=== PATIENT | female | born 1945 | race Caucasian/White ===

== ENCOUNTER 2024-08-14 03:21 | Emergency (ER) | payer MEDICARE, OTHER ==
[2024-08-14 04:01] LABS: Basophils # (A) 0.1 k/uL (0-0.2); Basophils % (A) 0 %; Eosinophils # (A) 0.1 k/uL (0-0.7); Eosinophils % (A) 1 %; HCT 25.4 % (34.0-46.0); HGB 7.7 gm/dL (11.4-16.0); Hypochromasia Marked; Lymphocytes # (A) 1.6 k/uL (1.0-4.8); Lymphocytes % (A) 8 %; MCH 26.2 pg (25.0-35.0); MCHC 30.3 g/dL (31.0-37.0); MCV 86.4 fL (80.0-100.0); Mean Platelet Volume 12.7; Monocytes # (A) 0.5 k/uL (0-1.0); Monocytes % (A) 2 %; Neutrophils # (A) 17.3 k/uL (1.3-7.7); Neutrophils % (A) 88 %; Platelet Count 230 k/uL (150-450); RBC 2.94 m/uL (3.80-5.40); RDW 15.7 % (11.5-15.5); WBC 19.6 k/uL (3.8-10.6)
[2024-08-14] MEDS: SODIUM CHLORIDE 0.9% 1,000 ML IV STA (04:03)
[2024-08-14] MEDS: PANTOPRAZOLE 40 MG/10 ML VIAL IVP STA (04:05)
[2024-08-14 04:17] LABS: ALT 19 U/L (4-34); AST 52 U/L (14-36); African American GFR (CKD) 42 (>60 ml/min/1.73 sqM); Albumin 3.8 g/dL (3.5-5.0); Alkaline Phosphatase 105 U/L (38-126); Anion Gap 11 mmol/L; Blood Urea Nitrogen 60 mg/dL (7-17); Calcium 8.9 mg/dL (8.4-10.2); Carbon Dioxide 15 mmol/L (22-30); Chloride 113 mmol/L (98-107); Glucose 387 mg/dL (74-99); Lipase 307 U/L (23-300); Magnesium 2.2 mg/dL (1.6-2.3); Non-African American GFR(CKD) 36 (>60 ml/min/1.73 sqM); Potassium 5.7 mmol/L (3.5-5.1); Sodium 139 mmol/L (137-145); Total Bilirubin 0.5 mg/dL (0.2-1.3); Total Protein 6.7 g/dL (6.3-8.2)
--- NOTE | 2024-08-14 04:27 | ED ---
General Adult HPI - General Chief complaint: GI Bleed Stated complaint: GI/Blood in Stool Time Seen by Provider: 08/14/24 03:38 Source: patient, EMS Mode of arrival: EMS Limitations: no limitations - History of Present Illness Initial comments: Patient 79-year-old female with a past medical history of dementia x 1-2 at baseline, presenting today for coffee-ground emesis and black stools. History is limited by patient's dementia. History mainly comes from EMS report. Patient comes from [facility], they state that at 130 this morning patient began having of the episodes of coffee-ground emesis and black tarry stools. The patient is not sure how many times she vomited, currently endorses back pain. On blood thinners. Does take a baby aspirin daily. - Related Data Home Medications Medication Instructions Recorded Confirmed Acetaminophen [Tylenol] 650 mg PO TID@0500,1300,2100 06/18/16 06/18/16 Albuterol Nebulized [Ventolin 2.5 mg INHALATION Q6H PRN 06/18/16 06/18/16 Nebulized] Artificial Tears-Hypromellose 2 drops BOTH EYES BID 06/18/16 06/18/16 [Artificial Tear Drops] Aspirin EC [Ecotrin Low Dose] 81 mg PO HS 06/18/16 06/18/16 Baclofen 10 mg PO BID 06/18/16 06/18/16 Dermaphor 1 applic TOPICAL TID PRN 06/18/16 06/18/16 Furosemide [Lasix] 20 mg PO DAILY 06/18/16 06/18/16 Ketoconazole 2% Cream [Nizoral 2%] 1 applic TOPICAL HS 06/18/16 06/18/16 Ketoconazole 2% Shampoo [Nizoral] 1 applic TOPICAL FR 06/18/16 06/18/16 Lidocaine 5% Oint [Xylocaine 5% 1 applic TOPICAL TID 06/18/16 06/18/16 Oint] Mylanta 30 ml PO Q4H PRN MDD 90 ML 06/18/16 06/18/16 Nystatin [Nystop] 1 applic TOPICAL BID PRN 06/18/16 06/18/16 Pravastatin Sodium [Pravachol] 40 mg PO HS 06/18/16 06/18/16 bisacodyL [Dulcolax] 10 mg RECTAL DAILY PRN 06/18/16 06/18/16 metFORMIN HCL [Glucophage] 500 mg PO BID 06/18/16 06/18/16 raNITIdine HCL [Zantac] 75 mg PO HS 06/18/16 06/18/16 Allergies Allergy/AdvReac Type Severity Reaction Status Date / Time No Known Allergies Allergy Verified 06/18/16 11:38 Review of Systems ROS Statement: Those systems with pertinent positive or pertinent negative responses have been documented in the HPI. ROS Other: All systems not noted in ROS Statement are negative. 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 History of Any Multi-Drug Resistant Organisms: ESBL Date of last positivie culture/infection: 06/18/16 MDRO Source:: ESBL URINE E.COLI Past Surgical History: Section, Cholecystectomy, Hysterectomy Past Anesthesia/Blood Transfusion Reactions: No Reported Reaction Additional Past Anesthesia/Blood Transfusion Reaction / Comment(s): blood transfuison 1965 Past Psychological History: No Psychological Hx Reported Smoking Status: Former smoker Past Alcohol Use History: None Reported Past Drug Use History: None Reported - Past Family History Father Family Medical History: Cancer Additional Family Medical History / Comment(s): colon cancer and heart disease Mother Family Medical History: CVA/TIA, Myocardial Infarction (GA) General Exam - General Exam Comments Initial Comments: PE: CONSTITUTIONAL: No apparent distress, ill-appearing, nontoxic, generalized pallor SKIN: Cool, pale, dry, no jaundice, hives or petechiae EYES: Pupils are equally round, extraocular movements intact without nystagmus, pale conjunctiva, non-icteric sclera HENT: Normocephalic, atraumatic, dry mucus membranes, oropharynx with some dry brownish discoloration over tongue, otherwise clear without exudates NECK: , Full range of motion, normal appearance PULMONARY: Rhonchi in the bilateral lung pabon, no crackles or wheezes, normal excursion, no accessory muscle use and no stridor CARDIOVASCULAR: Regular rate, rhythm, normal S1 and S2. No appreciated murmurs, rubs or gallops. 2+ radial pulses bilaterally with intact distal perfusion. No lower extremity edema GASTROINTESTINAL: Soft, decreased but active bowel sounds throughout, diffusely tender, nondistended, palpable umbilical hernia reducible, no rebound or guarding no hepatosplenomegaly, performed with ANITHA Gonsalves at bedside, showed dark tarry stool no active bleeding MUSCULOSKELETAL: Left shoulder tender palpation without gross deformity edema redness or swelling, known injury to the shoulder per facility's extremities have no gross deformity, no edema, redness, or swelling. No calf swelling NEUROLOGIC:_a/o x 2, GCS 15, normal mentation and speech. Moves all extremities x 4 without motor or sensory deficit PSYCHIATRIC:_normal mood and affect, thought process is clear and linear Limitations: no limitations Course Vital Signs 08/14/24 08/14/24 08/14/24 03:27 05:02 05:05 Temperature 97.9 F 97.3 F L 97.8 F Pulse Rate 101 H 102 H 91 Respiratory 16 36 H 32 H Rate Blood Pressure 107/88 107/55 91/48 O2 Sat by Pulse 96 94 L 96 Oximetry 08/14/24 08/14/24 08/14/24 05:12 05:55 06:03 Temperature Pulse Rate 93 87 77 Respiratory 36 H 32 H 20 Rate Blood Pressure 52/22 91/76 O2 Sat by Pulse 96 Oximetry EKG Findings - EKG Comments: EKG Findings:: Sinus tachycardia, rate 102 beats minute, AL interval 196 ms, QRS duration 100 ms, QT/QTc 341/400 ms, left axis deviation, artifact present throughout, no clear ST elevations or depressions however this is limited by artifact Medical Decision Making - Medical Decision Making Was pt. sent in by a medical professional or institution (, PA, REFRACTORY FURNACE DESIGNER, urgent care, hospital, or jail...) When possible be specific @ -Yes, from [facility] Did you speak to anyone other than the patient for history (EMS, parent, family, police, friend...)? What history was obtained from this source @ -No Did you review nursing and triage notes (agree or disagree)? Why? @ -I reviewed and agree with nursing and triage notes Were old charts reviewed (outside hosp., previous admission, EMS record, old EKG, old radiological studies, urgent care reports/EKG's, jail records)? Report findings @Medical records reviewed Differential Diagnosis (chest pain, altered mental status, abdominal pain women, abdominal pain men, vaginal bleeding, weakness, fever, dyspnea, syncope, headac he, dizziness, GI bleed, back pain, seizure, CVA, palpatations, mental health, musculoskeletal)? @Differential GI Bleed: Esophageal varices, aortoenteric fistula, Ani-Blake, gastritis, peptic ulcer disease, diverticulosis, inflammatory bowel disease, hemorrhoids, fissure, colitis, malignancy, Meckel's diverticulum, this is not meant to be an all- inclusive list. EKG interpreted by me (3pts min.). @ -As above X-rays interpreted by me (1pt min.). @ Diffuse pulmonary edema, cardiomegaly, no gross consolidations CT interpreted by me (1pt min.). @ -None done U/S interpreted by me (1pt. min.). @ -None done What testing was considered but not performed or refused? (CT, X-rays, U/S, labs)? Why? @ -see below What meds were considered but not given or refused? Why? @ -None Did you discuss the management of the patient with other professionals (professionals i.e. , PA, REFRACTORY FURNACE DESIGNER, lab, RT, psych nurse, social secretary, vertica architect, teacher, hotel security officer, case work aide)? Give summary @ Case discussed with Dr. Natacha Galindo GI, requests to ensure blood transfusing if able, prior to transfer, accepts for transfer Was smoking cessation discussed for >3mins.? @ -No Was critical care preformed (if so, how long)? @35 minutes Were there social determinants of health that impacted care today? How? (Homele ssness, low income, unemployed, alcoholism, drug addiction, transportation, low edu. Level, literacy, decrease access to med. care, correction, rehab)? @ -No Was there de-escalation of care discussed even if they declined (Discuss DNR or withdrawal of care, Hospice)? @ -Yes, it is noted on patient's paperwork from her facility that she is DNR however did discuss comfort care measures with guardian What co-morbidities impacted this encounter? (DM, HTN, Smoking, COPD, CAD, Cancer, CVA, ARF, Chemo, Hep., AIDS, mental health diagnosis, sleep apnea, morbid obesity)? @Diabetes, dementia Was patient admitted / discharged? Hospital course, mention meds given and route, prescriptions, significant lab abnormalities, going to OR and other pertinent info. @ -Hospital course- [place] [facility] [place] is a pleasant 79-year-old female with a past medical history of diabetes, dementia AO x 1 to 2 at baseline, currently at baseline presenting from [facility] for coffee-ground emesis and black tarry stool since 130 this morning. Patient is unable to tell me how many tmes she has vomited. Currently endorses back pain, otherwise denies complaints though does endorse abdominal pain with palpation of the abdomen diffusely. She is not on blood thinners, does take a baby aspirin daily. Patient is mildly tachycardic on arrival, blood pressure stable, physical exam significant for conjunctival pallor, patient diffusely pale, abdomen mildly distended, diffusely painful, hypoactive bowel sounds throughout, she does have an umbilical hernia that is soft and reducible, multiple surgical scars on the abdomen. Patient complains of left shoulder pain, facility states that patient's left shoulder is "almost broken" and this is a known injury. There is currently no deformity to this and extremity is neurovascularly intact. Plan for high-dose Protonix, type and cross, CT GI bleed study, CBC, CMP. Additionally patient does have rhonchi in bilateral lung pabon, pulse ox currently within acceptable limits, she does not appear to be in any respiratory distress. Ordered chest x-ray and troponin as well. There is no gastroenterology specialist here currently and with Hemoccult positive s tool and persistent concern for upper GI bleed, will discuss w/ Quinten Galindo for transfer. Case discussed with Quinten Edouard, kindly accepted patient for transfer. Legal listed guardian Toribio Flannery, cell phone number listed is [phone], Office #[phone]. Will attempt to contact. Patient will transfer with paperwork from [facility] listing her guardian as well. . Lab significant for leukocytosis white blood count 19.6, hemoglobin is 7.7 last checked on 03/08/2024 was 10.2, platelet count is currently pending, potassium 5.7 creatinine 1.37, patient's previous creatinine was 0.88 on 03/08/2024 GFR is currently 36, previously on 03/08/2024 was 62 patient's JANE will forego CT GI bleed study given patient already has Hemoccult positive stool, accepted for transfer, I do not think this will change her disposition not currently having any active episodes of emesis. Hyperkalemia treatment ordered with insulin, dextrose, high-dose albuterol calcium gluconate. Patient does not have EKG changes consistent with hyperkalemia at this time. Lipase additionally 307 AST 52. Due to drop in hemoglobin, patient's pallor and mild tachycardia I will transfuse 1 unit PRBCs to begin prior to transfer. Patient w/ no signs of bloody stool or emesis yet in the ER. Just prior to transfer patient became minimally responsive, eyes are open, gurgling respirations, does not respond to sternal rub. POC glucose "high". Patient placed on NRB. Had large dark stool. She is DNR on her paperwork. I contacted Toribio, her listed guardian, regarding patient's status and poor prognosis given decompensating vitals and mental status and continued dark stools. The patient is DNR, DNI. Further we discussed aggressive measures such as massive transfusion protocol and blood transfusions though I do not suspect that this will ultimately change patient's outcome. At this point Toribio feels patient would want comfort care. Comfort care measures to be instituted. RN contacted patient's sister to update her at request of patient's guardian. Patient in the emergency department at 6:21 AM. Undiagnosed new problem with uncertain prognosis? @ -No Drug Therapy requiring intensive monitoring for toxicity (Heparin, Nitro, Insulin, Cardizem)? @ -No Were any procedures done? @ -No Diagnosis/symptom? @GI bleed, upper; JANE hyperkalemia Acute, or Chronic, or Acute on Chronic? @Acute Uncomplicated (without systemic symptoms) or Complicated (systemic symptoms)? @ -Complicated Side effects of treatment? @ -No Exacerbation, Progression, or Severe Exacerbation? @ -No Poses a threat to life or bodily function? How? (Chest pain, USA, GA, pneumonia, PE, COPD, DKA, ARF, appy, cholecystitis, CVA, Diverticulitis, Homicidal, Suicidal, threat to staff... and all critical care pts) @Yes, ultimately resulted in patient's - Lab Data Result diagrams: 08/14/24 03:45 08/14/24 03:45 Lab Results 08/14/24 08/14/24 08/14/24 Range/Units 03:40 03:45 03:45 WBC 19.6 H (3.8-10.6) k/uL RBC 2.94 L (3.80-5.40) m/uL Hgb 7.7 L (11.4-16.0) gm/dL Hct 25.4 L (34.0-46.0) % MCV 86.4 (80.0-100.0) fL MCH 26.2 (25.0-35.0) pg MCHC 30.3 L (31.0-37.0) g/dL RDW 15.7 H (11.5-15.5) % Plt Count 230 (150-450) k/uL MPV 12.7 Neutrophils % 88 % Lymphocytes % 8 % Monocytes % 2 % Eosinophils % 1 % Basophils % 0 % Neutrophils # 17.3 H (1.3-7.7) k/uL Lymphocytes # 1.6 (1.0-4.8) k/uL Monocytes # 0.5 (0-1.0) k/uL Eosinophils # 0.1 (0-0.7) k/uL Basophils # 0.1 (0-0.2) k/uL Manual Slide Review Performed Large Platelets Present Polychromasia Present Hypochromasia Marked Tear Drop Cells Present Ovalocytes Present Fragmented RBCs Present Sodium 139 (137-145) mmol/L Potassium 5.7 H (3.5-5.1) mmol/L Chloride 113 H (98-107) mmol/L Carbon Dioxide 15 L (22-30) mmol/L Anion Gap 11 mmol/L BUN 60 H (7-17) mg/dL Creatinine 1.37 H (0.52-1.04) mg/dL Est GFR (CKD-EPI)AfAm 42 (>60 ml/min/1.73 sqM) Est GFR (CKD-EPI)NonAf 36 (>60 ml/min/1.73 sqM) Glucose 387 H (74-99) mg/dL POC Glucose (mg/dL) (70-110) mg/dL POC Glu Saw Feeder ID Lactic Ac Sepsis Rflx Plasma Lactic Acid Shayan (0.7-2.0) mmol/L Calcium 8.9 (8.4-10.2) mg/dL Magnesium 2.2 (1.6-2.3) mg/dL Total Bilirubin 0.5 (0.2-1.3) mg/dL AST 52 H (14-36) U/L ALT 19 (4-34) U/L Alkaline Phosphatase 105 (38-126) U/L Troponin I (0.000-0.034) ng/mL Total Protein 6.7 (6.3-8.2) g/dL Albumin 3.8 (3.5-5.0) g/dL Lipase 307 H (23-300) U/L Stool Occult Blood (Negative) Blood Type B Positive Blood Type Confirm Blood Type Recheck No Previous Record Bld Type Recheck Status CABO Indicated Antibody Screen NEGATIVE Crossmatch See Detail Spec Expiration Date 08/17/2024 - 234408/14/24 08/14/24 08/14/24 Range/Units 03:45 03:45 03:45 WBC (3.8-10.6) k/uL RBC (3.80-5.40) m/uL Hgb (11.4-16.0) gm/dL Hct (34.0-46.0) % MCV (80.0-100.0) fL MCH (25.0-35.0) pg MCHC (31.0-37.0) g/dL RDW (11.5-15.5) % Plt Count (150-450) k/uL MPV Neutrophils % % Lymphocytes % % Monocytes % % Eosinophils % % Basophils % % Neutrophils # (1.3-7.7) k/uL Lymphocytes # (1.0-4.8) k/uL Monocytes # (0-1.0) k/uL Eosinophils # (0-0.7) k/uL Basophils # (0-0.2) k/uL Manual Slide Review Large Platelets Polychromasia Hypochromasia Tear Drop Cells Ovalocytes Fragmented RBCs Sodium (137-145) mmol/L Potassium (3.5-5.1) mmol/L Chloride (98-107) mmol/L Carbon Dioxide (22-30) mmol/L Anion Gap mmol/L BUN (7-17) mg/dL Creatinine (0.52-1.04) mg/dL Est GFR (CKD-EPI)AfAm (>60 ml/min/1.73 sqM) Est GFR (CKD-EPI)NonAf (>60 ml/min/1.73 sqM) Glucose (74-99) mg/dL POC Glucose (mg/dL) (70-110) mg/dL POC Glu Saw Feeder ID Lactic Ac Sepsis Rflx Plasma Lactic Acid Shayan 4.6 H* (0.7-2.0) mmol/L Calcium (8.4-10.2) mg/dL Magnesium (1.6-2.3) mg/dL Total Bilirubin (0.2-1.3) mg/dL AST (14-36) U/L ALT (4-34) U/L Alkaline Phosphatase (38-126) U/L Troponin I 2.520 H* (0.000-0.034) ng/mL Total Protein (6.3-8.2) g/dL Albumin (3.5-5.0) g/dL Lipase (23-300) U/L Stool Occult Blood (Negative) Blood Type Blood Type Confirm B Positive Blood Type Recheck Bld Type Recheck Status Antibody Screen Crossmatch Spec Expiration Date 08/14/24 08/14/24 08/14/24 Range/Units 04:15 04:59 05:51 WBC (3.8-10.6) k/uL RBC (3.80-5.40) m/uL Hgb (11.4-16.0) gm/dL Hct (34.0-46.0) % MCV (80.0-100.0) fL MCH (25.0-35.0) pg MCHC (31.0-37.0) g/dL RDW (11.5-15.5) % Plt Count (150-450) k/uL MPV Neutrophils % % Lymphocytes % % Monocytes % % Eosinophils % % Basophils % % Neutrophils # (1.3-7.7) k/uL Lymphocytes # (1.0-4.8) k/uL Monocytes # (0-1.0) k/uL Eosinophils # (0-0.7) k/uL Basophils # (0-0.2) k/uL Manual Slide Review Large Platelets Polychromasia Hypochromasia Tear Drop Cells Ovalocytes Fragmented RBCs Sodium (137-145) mmol/L Potassium (3.5-5.1) mmol/L Chloride (98-107) mmol/L Carbon Dioxide (22-30) mmol/L Anion Gap mmol/L BUN (7-17) mg/dL Creatinine (0.52-1.04) mg/dL Est GFR (CKD-EPI)AfAm (>60 ml/min/1.73 sqM) Est GFR (CKD-EPI)NonAf (>60 ml/min/1.73 sqM) Glucose (74-99) mg/dL POC Glucose (mg/dL) >600 H* (70-110) mg/dL POC Glu Saw Feeder ID Burgess Hankins Lactic Ac Sepsis Rflx Y Plasma Lactic Acid Shayan (0.7-2.0) mmol/L Calcium (8.4-10.2) mg/dL Magnesium (1.6-2.3) mg/dL Total Bilirubin (0.2-1.3) mg/dL AST (14-36) U/L ALT (4-34) U/L Alkaline Phosphatase (38-126) U/L Troponin I (0.000-0.034) ng/mL Total Protein (6.3-8.2) g/dL Albumin (3.5-5.0) g/dL Lipase (23-300) U/L Stool Occult Blood Positive H (Negative) Blood Type Blood Type Confirm Blood Type Recheck Bld Type Recheck Status Antibody Screen Crossmatch Spec Expiration Date Disposition Clinical Impression: GI bleed Disposition: ADMITTED IP TO THIS [facility] Condition: Critical Is patient prescribed a controlled substance at d/c from ED?: No Referrals: None,Stated [Primary Care Provider] - 1-2 days
[2024-08-14] MEDS: CALCIUM GLUCONATE IN NACL 1 GM in SALINE 1 100ML.BAG IVPB ONE (04:50)
[2024-08-14] MEDS: INSULIN REGULAR 100 UNIT/ML VIAL (IV) IV ONE (04:51)
[2024-08-14] MEDS: DEXTROSE 50% SYRINGE 50 ML IVP ONE (04:57)
[2024-08-14 05:00] LABS: Glucose,Whole Blood >600 mg/dL (70-110)
[2024-08-14 05:09] LABS: Large Platelets Present; Ovalocytes Present; Polychromasia Present; RBC Fragments Present; Tear Drop Cells Present
[2024-08-14] MEDS: LORazepam 2 MG/ML INJ IV STA (05:11)
[2024-08-14] MEDS: ALBUTEROL NEB (CONC) 2.5 MG/0.5 ML INHALATION ONE (05:11)
[2024-08-14] MEDS: MORPHINE SULFATE 4 MG/ML SYRINGE IVP STA (05:11)
[2024-08-14 05:16] VITALS: TEMP 97.8
[2024-08-14] MEDS ORDERED: LORazepam 2 MG/ML INJ IV PRN (05:24)
[2024-08-14] MEDS ORDERED: MORPHINE SULFATE 2 MG/ML SYRINGE IVP PRN (05:24)
[2024-08-14] MEDS ORDERED: GLYCOPYRROLATE 0.2 MG/ML 2 ML VIAL IVP PRN (05:24)
[2024-08-14] MEDS ORDERED: HYDROmorphone 0.5 MG/0.5 ML SYRINGE IVP PRN (05:24)
[2024-08-14] MEDS ORDERED: ATROPINE OPHTH SOLN 1% 5ML BTL SUBLINGUAL PRN (05:24)
[2024-08-14] MEDS ORDERED: ARTIFICIAL TEARS-HYPROMELLOSE DROPS 15 ML BTL BOTH EYES PRN (05:24)
[2024-08-14] MEDS ORDERED: DIPHENOX-ATROP 2.5-0.025 MG 1 EACH TAB PO PRN (05:24)
[2024-08-14] MEDS ORDERED: MORPHINE SULFATE 2 MG/ML SYRINGE IV PRN (05:24)
[2024-08-14] MEDS ORDERED: ONDANSETRON 4 MG/2 ML VIAL IVP PRN (05:24)
[2024-08-14] MEDS ORDERED: SCOPOLAMINE 1 MG/72 HR PATCH TRANSDERM SCH (05:30)
[2024-08-14] MEDS: MORPHINE SULFATE (100 MG/2 ML) 100 MG in SODIUM CHLORIDE 0.9% 100 ML IV SCH (05:48)
[2024-08-14 05:56] VITALS: BP 91/76
[2024-08-14 06:05] VITALS: PULSE 77; RESP 20
--- NOTE | 2024-08-14 06:30 | XR ---
EXAM: XR Chest, 1 View CLINICAL HISTORY: Reason: rhonchi TECHNIQUE: Frontal view of the chest. COMPARISON: 06/19/16 FINDINGS: Lungs: Prominent interstitial markings bilaterally most likely due to pulmonary edema. There is no definite airspace consolidation. Pleural space: Unremarkable. No pneumothorax. Heart: Mildly enlarged cardiac silhouette. Mediastinum: No mediastinal widening or shift. Bones/joints: There is no evidence of acute osseous abnormality. IMPRESSION: Mild pulmonary edema, which may be associated with cardiac dysfunction or hypervolemia. No evidence of airspace consolidation.
== END 2024-08-14 09:19 | disposition other institution (70) ==
LOC: EC 03:21
DX: K92.2 Gastrointestinal hemorrhage, unspecified (principal); E11.10 Type 2 diabetes mellitus with ketoacidosis without coma; F03.90 Unspecified dementia, unspecified severity, without behavioral disturbance, psychotic disturbance, mood disturbance, and anxiety; Z79.84 Long term (current) use of oral hypoglycemic drugs; Z79.899 Other long term (current) drug therapy; Z87.891 Personal history of nicotine dependence; Z86.73 Personal history of transient ischemic attack (TIA), and cerebral infarction without residual deficits
CPT/HCPCS: 36415; 86900; 86901; 80053; 83605; 83690; 83735; 84484; 85025; 86850; 86920; 82272; 71045; 99291; 96365; 96367; 96361; 96375; 36430; P9016; J2060; J2270 ×2; J0613; J2470